=== PATIENT | female | born 1990 | race Caucasian/White ===

== ENCOUNTER 2017-09-12 23:59 | Emergency (ER) | payer MEDICAID ==
[~2017-09-12] VITALS: Ht 160 cm; Wt 78.0 kg
[2017-09-13 00:15] VITALS: BP 126/69
== END 2017-09-13 04:00 | disposition left against medical advice (07) ==
LOC: ER 09-13 03:30
DX: Z53.21 Procedure and treatment not carried out due to patient leaving prior to being seen by health care provider (principal)

== ENCOUNTER 2018-08-15 18:45 | Emergency (ER) | payer MEDICAID ==
[~2018-08-15] VITALS: Ht 160 cm; Wt 114.0 kg
[2018-08-15 19:09] VITALS: BP 134/86
== END 2018-08-15 22:15 | disposition left against medical advice (07) ==
LOC: ER 18:45
DX: R50.9 Fever, unspecified (principal); Z53.21 Procedure and treatment not carried out due to patient leaving prior to being seen by health care provider